=== PATIENT | male | born 1990 | race African-American/Black ===

== ENCOUNTER 2018-01-25 06:55 | Emergency (ER) | payer MEDICAID ==
[~2018-01-25] VITALS: Ht 185.4 cm; Wt 95.0 kg
[~2018-01-25 06:55] MED LIST: VIC
[2018-01-25] MEDS ORDERED: VISCOUS LIDOCAINE 2% 15 ML UDC PO ONE (08:30)
[2018-01-25] MEDS ORDERED: MAGNESIUM/ALUMINUM HYDROXIDE/SIMETHICONE 30ML UDC PO ONE (08:30)
[2018-01-25] MEDS ORDERED: FAMOTIDINE 20MG TABLET PO ONE (08:30)
[2018-01-25 08:41] VITALS: BP 115/73
== END 2018-01-25 10:24 | disposition home or self-care (01) ==
LOC: ER 07:55
DX: K21.9 Gastro-esophageal reflux disease without esophagitis (principal); F17.200 Nicotine dependence, unspecified, uncomplicated; F12.10 Cannabis abuse, uncomplicated
CPT/HCPCS: 71045; 87070; 87430; 99285

== ENCOUNTER 2018-04-06 00:18 | Emergency (ER) | payer MEDICAID | END 2018-04-06 01:26 | disposition left against medical advice (07) | LOC: ER 00:18 | DX: R51 Headache (principal); Z53.21 Procedure and treatment not carried out due to patient leaving prior to being seen by health care provider ==

== ENCOUNTER 2022-06-25 08:25 | Emergency (ER) | payer MEDICAID, OTHER ==
[~2022-06-25] VITALS: Ht 188 cm; Wt 100.0 kg
[2022-06-25 08:31] VITALS: BP 114/77
[2022-06-25] MEDS ORDERED: TRAM50TA3 MT (09:07)
[2022-06-25] MEDS ORDERED: NAPR-1176 MT (09:07)
[2022-06-25] MEDS ORDERED: PENI500T MT (09:07)
== END 2022-06-25 09:31 | disposition home or self-care (01) ==
LOC: ER 08:25
DX: J02.9 Acute pharyngitis, unspecified (principal); F12.10 Cannabis abuse, uncomplicated
CPT/HCPCS: 99281

== ENCOUNTER 2022-12-19 03:21 | Emergency (ER) | payer MEDICAID, OTHER ==
[~2022-12-19] VITALS: Ht 182.9 cm; Wt 100.0 kg
[~2022-12-19 03:21] MED LIST changes: +NAPR-1176 MT; +PENI500T MT; +TRAM50TA3 MT
[2022-12-19 03:28] VITALS: BP 127/85
[2022-12-19] MEDS ORDERED: BENZ100C86 MT (06:21)
== END 2022-12-19 06:56 | disposition home or self-care (01) ==
LOC: ER 03:21
DX: J06.9 Acute upper respiratory infection, unspecified (principal)
CPT/HCPCS: 71045; 99283; Z7610